=== PATIENT | male | born 1985 | race African-American/Black ===

== ENCOUNTER 2021-04-28 23:07 | Emergency (ER) | payer OTHER ==
[~2021-04-28] VITALS: Ht 195.6 cm; Wt 91.0 kg
[2021-04-28 23:13] VITALS: BP 156/101
[2021-04-28] MEDS ORDERED: IBUPROFEN 600MG TABLET PO STA (23:47)
[2021-04-29] MEDS ORDERED: CYCL5TAB PO (01:16)
[2021-04-29] MEDS ORDERED: IBUP-2029 PO (01:16)
== END 2021-04-29 01:34 | disposition home or self-care (01) ==
LOC: ER 23:07
DX: M54.50 Low back pain, unspecified (principal); M25.552 Pain in left hip; V03.00XA Pedestrian on foot injured in collision with car, pick-up truck or van in nontraffic accident, initial encounter; Y93.89 Activity, other specified; Y92.488 Other paved roadways as the place of occurrence of the external cause; Y99.8 Other external cause status
CPT/HCPCS: 72100; 73502; 99284